=== PATIENT | male | born 1980 | race American Indian/Alaskan Native ===

== ENCOUNTER 2016-05-27 04:47 | Observation (INO) | payer OTHER ==
[2016-05-27 04:47] VITALS: BMI 28.5
[2016-05-27 05:14] VITALS: BP 114/70; PULSE 86; RESP 17; TEMP 98.8; O2SAT 99
[2016-05-27] MEDS ORDERED: Iohexol 240 (50 ml) PO ONE (05:28)
[2016-05-27] MEDS ORDERED: Sodium Chloride 0.9% 1,000 ML IV STA (05:30)
--- NOTE | 2016-05-27 05:39 | ED PDOC ---
HPI: Abdomen Time Seen by Provider: 05/27/16 05:22 Chief Complaint (Nursing): Abdominal Pain Chief Complaint (Provider): Abdominal pain History Per: Patient History/Exam Limitations: no limitations Onset/Duration Of Symptoms: Hrs (8) Outside of [place] travel?: No Current Symptoms Are (Timing): Still Present Location Of Pain/Discomfort: RLQ, Other (radiating to right testicle) Associated Symptoms: Nausea, Vomiting. denies: Urinary Symptoms Additional History Per: Patient Additional Complaint(s): The pt is a 36yo male with PMHx of GERD, presents to the ED for evaluation of abdominal pain for the past 8 hrs. Pt reports his pain originated in his right lower quadrant and radiates to his right testicle - pt reports his pain has worsened through the night. Pt rpeorts the pain as sharp, constant and is associated with nausea and 2x non-bloody, non-bilious vomiting. Pt denies any urinary symptoms and offers no additional medical complaints. Past Medical History Reviewed: Historical Data, Nursing Documentation, Vital Signs Vital Signs: Last Vital Signs Temp 98.8 F 05/27/16 05:09 Pulse 86 05/27/16 05:09 Resp 17 05/27/16 05:09 BP 114/70 05/27/16 05:09 Pulse Ox 99 05/27/16 11:34 - Medical History PMH: GERD Denies: Depression - Surgical History Surgical History: No Surg Hx - Family History Family History: States: No Known Family Hx - Home Medications Home Medications: Ambulatory Orders Medication Instructions Recorded Omeprazole Magnesium [Prilosec Otc] 40 mg PO DAILY 05/27/16 - Allergies Allergies/Adverse Reactions: Allergies Allergy/AdvReac Type Severity Reaction Status Date / Time No Known Allergies Allergy Verified 05/27/16 05:14 Review of Systems ROS Statement: Except As Marked, All Systems Reviewed And Found Negative Gastrointestinal: Positive for: Nausea, Vomiting, Abdominal Pain Physical Exam - Reviewed Nursing Documentation Reviewed: Yes Vital Signs Reviewed: Yes - Physical Exam Appears: Positive for: Well, Non-toxic, No Acute Distress Head Exam: Positive for: ATRAUMATIC, NORMAL INSPECTION, NORMOCEPHALIC Skin: Positive for: Normal Color, Warm, DRY Eye Exam: Positive for: Normal appearance, EOMI, PERRL Neck: Positive for: Normal, Supple Cardiovascular/Chest: Positive for: Regular Rate, Rhythm Respiratory: Positive for: Normal Breath Sounds. Negative for: Respiratory Distress Gastrointestinal/Abdominal: Positive for: Soft, Tenderness (right lower quadrant ) Male Genital Exam: Positive for: normal genitalia, other (uncircumcised male). Negative for: testicular tenderness (R) Neurologic/Psych: Positive for: Alert, Oriented - Laboratory Results Result Diagrams: 05/27/16 06:20 05/27/16 06:20 - ECG O2 Sat by Pulse Oximetry: 99 (RA) Pulse Ox Interpretation: Normal Medical Decision Making Medical Decision Making: Time: 536 Impression: right lower quadrant abdominal pain Plan: -- CT AP w/ PO & IV Contrast -- Bloodwork -- Morphine -- Zofran -- IV Fluids --Reassess Scribe Attestation: Documented by Gabby Yan acting as a scribe for Reji Alvarenga MD. Provider Attestation: All medical record entries made by the Scribe were at my direction and personally dictated by me. I have reviewed the chart and agree that the record accurately reflects my personal performance of the history, physical exam, medical decision making, and the department course for this patient. I have also personally directed, reviewed, and agree with the discharge instructions and disposition. ED OBSERVATION Date of observation admission: 05/27/16 Time of observation admission: : - Observation admission statement Patient is being placed in observation because:: pt waiting ct ap - Goals of Observation Goals of observation are:: ct results - Progress Note Progress Note: 05/27/16 07:00 pt to be signed out to Dr. Goodson pending CT results. Disposition - Clinical Impression Clinical Impression: Abdominal pain - Patient ED Disposition Is Patient to be Admitted: Transfer of Care - Disposition Disposition: Transfer of Care Disposition Time: 05:22 Condition: FAIR Patient Signed Over To: Richard Goodson Handoff Comments: Pending CT results and re-evaluation
[2016-05-27 06:23] LABS: BASO % 0.9 % (0.0-2.0); EOS # 0.2 K/uL (0.0-0.7); HEMATOCRIT 41.6 % (35.0-51.0); LYMPH # 1.8 K/uL (1.0-4.3); LYMPH % 43.4 % (20.0-40.0); MEAN CELL VOLUME 89.6 fl (80.0-94.0); MEAN CORPUSCULAR HEMOGLOBIN 28.4 pg (27.0-31.0); MEAN CORPUSCULAR HGB CONC 31.7 g/dL (33.0-37.0); MEAN PLATELET VOLUME 8.6 fl (7.2-11.7); MONO # 0.3 K/uL (0.0-0.8); MONO % 7.9 % (0.0-10.0); NEUT # 1.8 K/uL (1.8-7.0); NEUT % 42.8 % (50.0-75.0); NRBC % 0.1 % (0.0-0.0); RED CELL DISTRIBUTION WIDTH 14.2 % (11.5-14.5); WHITE BLOOD COUNT 4.2 K/uL (4.8-10.8)
[2016-05-27 06:39] LABS: ALB/GLOB RATIO 1.2 (1.0-2.1); ALKALINE PHOSPHATASE 78 U/L (38-126); ALT/SGPT 40 U/L (21-72); AST/SGOT 37 U/L (17-59); BILIRUBIN,TOTAL 0.3 mg/dl (0.2-1.3); BLOOD UREA NITROGEN 11 mg/dl (9-20); CALCIUM 8.9 mg/dL (8.4-10.2); CARBON DIOXIDE 23 mmol/L (22-30); CHLORIDE 111 mmol/L (98-107); GFR AFRICAN-AMERICAN > 60; GLUCOSE,RANDOM 101 mg/dL (75-110); LIPASE 243 U/L (23-300); POTASSIUM 3.7 MMOL/L (3.6-5.0); SODIUM 150 mmol/l (132-148); TOTAL PROTEIN 7.9 G/DL (6.3-8.2)
--- NOTE | 2016-05-27 07:10 | ED PDOC ---
- Laboratory Results Result Diagrams: 05/27/16 06:20 05/27/16 06:20 - ECG O2 Sat by Pulse Oximetry: 99 (RA) Pulse Ox Interpretation: Normal Medical Decision Making Medical Decision Making: Time: 7:00 --Patient is pending for Ultrasound and CT abdomen results, reassessment, and final disposition. Time: 7:40 --Patient was treated with Morphine 4mg at 5:29 and second time with Morphine 6mg at 6:[address] Alvarenga during the previous shift. Patient was laying down sleeping on bed until 7:30 and started complaining about abdominal pain again. --I offered patient Toradol in the meanwhile until Abdomen/Pelvis PO & IV Contrast CT was complete in order to further investigate why he was having pain ; if Morphine or other medications were needed again then it will be ordered. --Patient refused Toradol and stated he will not complete CT until he receives stronger medications. I did state he will provide pain medications after CT since opioid medications are restricted, he recevied large dose of opioid less than 4 hr ago, and we have no diagnosis at this time, and until appropriate medical care was provided, but patient refused the plan and refused signing any paperwork. Disposition Doctor Will See Patient In The: Office Counseled Patient/Family Regarding: Studies Performed, Diagnosis, Need For Followup - Clinical Impression Clinical Impression: Abdominal pain - POA Present On Arrival: None - Disposition Disposition: Left W/O Treatment Disposition Time: 08:00 Condition: STABLE
== END 2016-05-27 08:35 | disposition left against medical advice (07) ==
LOC: H.ER 04:47 → H.EROBSV 06:22
PROVIDERS: ADMIT Emergency Medicine; ATTEND Emergency Medicine
DX: R10.31 Right lower quadrant pain (principal); K21.9 Gastro-esophageal reflux disease without esophagitis

== ENCOUNTER 2017-06-07 01:46 | Emergency (ER) | payer SELFPAY ==
[2017-06-07 01:47] VITALS: BMI 28.5
[2017-06-07 03:32] VITALS: BP 135/58; PULSE 81; RESP 17; TEMP 97.5; O2SAT 99
[2017-06-07] MEDS ORDERED: Sodium Chloride 0.9% 1,000 ML IV STA (03:58)
[2017-06-07] MEDS ORDERED: Iohexol 240 (50 ml) PO ONE (03:58)
--- NOTE | 2017-06-07 04:16 | ED PDOC ---
HPI: Abdomen Time Seen by Provider: 06/07/17 03:34 Chief Complaint (Nursing): GI Problem History Per: Patient History/Exam Limitations: no limitations Onset/Duration Of Symptoms: Days Outside of [place] travel?: No Current Symptoms Are (Timing): Still Present Location Of Pain/Discomfort: LLQ Quality Of Discomfort: Cramping Additional Complaint(s): No PMHx presenting with abdominal pain and rectal bleeding after getting a colonic yesterday, states he's had them before but states that he felt this was different because of the tubing, states 5 minutes into the procedure he felt sharp pain in his LLQ and saw bleeding. States the bleeding has since gotten better, but the pain persists. Denies nausea, vomiting, fevers, or other symptoms. Past Medical History Reviewed: Historical Data, Nursing Documentation, Vital Signs Vital Signs: Last Vital Signs Temp 97.5 F L 06/07/17 02:11 Pulse 81 06/07/17 02:11 Resp 17 06/07/17 02:11 BP 135/58 L 06/07/17 02:11 Pulse Ox 99 06/07/17 02:11 - Medical History PMH: No Chronic Diseases, GERD Denies: Depression - Surgical History Surgical History: Appendectomy - Family History Family History: States: Unknown Family Hx - Home Medications Home Medications: Ambulatory Orders Medication Instructions Recorded Omeprazole Magnesium [Prilosec Otc] 40 mg PO DAILY 05/27/16 - Allergies Allergies/Adverse Reactions: Allergies Allergy/AdvReac Type Severity Reaction Status Date / Time No Known Allergies Allergy Verified 05/27/16 05:14 Review of Systems ROS Statement: Except As Marked, All Systems Reviewed And Found Negative Gastrointestinal: Positive for: Abdominal Pain, Rectal Pain Physical Exam - Reviewed Nursing Documentation Reviewed: Yes Vital Signs Reviewed: Yes - Physical Exam Appears: Positive for: Well, Non-toxic, No Acute Distress Head Exam: Positive for: ATRAUMATIC, NORMAL INSPECTION, NORMOCEPHALIC Skin: Positive for: Normal Color, Warm, DRY Eye Exam: Positive for: EOMI, Normal appearance, PERRL ENT: Positive for: Normal ENT Inspection Neck: Positive for: Normal, Painless ROM Cardiovascular/Chest: Positive for: Regular Rate, Rhythm Respiratory: Positive for: CNT, Normal Breath Sounds Gastrointestinal/Abdominal: Positive for: Normal Exam, Soft, Tenderness (LLQ tenderness) Back: Positive for: Normal Inspection Rectal: Positive for: Normal Exam Extremity: Positive for: Normal ROM Neurologic/Psych: Positive for: Alert, Oriented - ECG O2 Sat by Pulse Oximetry: 99 Pulse Ox Interpretation: Normal Medical Decision Making Medical Decision Makin A/P: No PMHx p/w abdominal pain after colonic -concerned for possible infection, less likely perforation -will check labs, Ct -patient uncomfortable appearing, but vitals stable 420 Patient no where to be found in ER, checked multiple bathrooms, waiting room. Patient seen by another patient walking out of ER. Disposition - Clinical Impression Clinical Impression: Abdominal pain - Disposition Disposition Time: 04:20 Condition: UNKNOWN
== END 2017-06-07 04:25 | disposition left against medical advice (07) ==
LOC: H.ER 01:46
DX: R10.32 Left lower quadrant pain (principal)

== ENCOUNTER 2018-04-07 17:44 | Observation (INO) | payer OTHER ==
[2018-04-07 17:45] VITALS: BMI 28.5
[2018-04-07] MEDS ORDERED: Lidocaine 1% Inj (20ml) IJ ONE (19:39)
[2018-04-07] MEDS ORDERED: Lidocaine 2% Jelly (Uro-Jet) TOP ONE (19:56)
[2018-04-07] MEDS ORDERED: Lidocaine 2% Jelly (Uro-Jet) ONE (20:07)
[2018-04-07 20:23] LABS: EOS # 0.1 K/uL (0.0-0.7); EOS % 1.4 % (0.0-4.0); HEMOGLOBIN 11.8 g/dL (12.0-18.0); LYMPH # 1.3 K/uL (1.0-4.3); MEAN CELL VOLUME 87.2 fl (80.0-94.0); MEAN CORPUSCULAR HEMOGLOBIN 28.5 pg (27.0-31.0); MEAN CORPUSCULAR HGB CONC 32.7 g/dL (33.0-37.0); MEAN PLATELET VOLUME 8.5 fl (7.2-11.7); MONO # 0.4 K/uL (0.0-0.8); MONO % 9.1 % (0.0-10.0); NEUT # 2.2 K/uL (1.8-7.0); NEUT % 56.5 % (50.0-75.0); RBC 4.13 Mil/uL (4.40-5.90); RED CELL DISTRIBUTION WIDTH 14.5 % (11.5-14.5); WHITE BLOOD COUNT 3.9 K/uL (4.8-10.8)
[2018-04-07 20:37] LABS: ALB/GLOB RATIO 1.3 (1.0-2.1); ALBUMIN 4.2 g/dL (3.5-5.0); ALT/SGPT 22 U/L (21-72); AST/SGOT 38 U/L (17-59); BLOOD UREA NITROGEN 11 mg/dl (9-20); CALCIUM 9.4 mg/dL (8.4-10.2); GFR NON-AFRICAN AMERICAN > 60; LIPASE 275 U/L (23-300)
[2018-04-07] MEDS ORDERED: Iohexol 240 (50 ml) PO ONE (20:40)
--- NOTE | 2018-04-07 21:06 | ED PDOC ---
HPI: Abdomen Time Seen by Provider: 04/07/18 19:15 Chief Complaint (Nursing): GI Problem Chief Complaint (Provider): GI Problem History Per: Patient History/Exam Limitations: no limitations Onset/Duration Of Symptoms: Hrs Current Symptoms Are (Timing): Still Present Location Of Pain/Discomfort: LLQ Associated Symptoms: denies: Nausea, Vomiting Additional Complaint(s): Brayden Connolly is a 38 year old male with a past medical history of DVT on eliquis who is presenting to the ED for evaluation of left lower quadrant abdominal pain and rectal pain onset today after receiving a hydro colonic at a spa. Patient states that when they inserted the catheter he immediately felt pain at rectum and after 2 minutes of a water therapy he started having abdominal pain. He denies any nausea or vomiting but states that when he went to the bathroom he saw blood and noted worsening abdominal pain. Patient offers no other medical complaints at this time. PMD: Gabrielle Wilkins, Past Medical History Reviewed: Historical Data, Nursing Documentation, Vital Signs Vital Signs: Last Vital Signs Temp 98.0 F 04/07/18 18:29 Pulse 120 H 04/07/18 18:29 Resp 18 04/07/18 18:29 BP 116/74 04/07/18 18:29 Pulse Ox 97 04/07/18 18:29 - Medical History PMH: Deep Vein Thrombosis, GERD Denies: Depression - Surgical History Surgical History: Appendectomy - Family History Family History: States: Unknown Family Hx - Social History Current smoker - smoking cessation education provided: No Ex-Smoker (has not smoked in the last 12 months): Yes Alcohol: Social Drugs: Denies - Home Medications Home Medications: Ambulatory Orders Medication Instructions Recorded Omeprazole Magnesium [Prilosec Otc] 40 mg PO DAILY 05/27/16 Rivaroxaban [Xarelto] 20 mg PO DAILY 04/08/18 - Allergies Allergies/Adverse Reactions: Allergies Allergy/AdvReac Type Severity Reaction Status Date / Time No Known Allergies Allergy Verified 05/27/16 05:14 Review of Systems ROS Statement: Except As Marked, All Systems Reviewed And Found Negative Gastrointestinal: Positive for: Abdominal Pain, Hematochezia, Rectal Pain. Negative for: Nausea, Vomiting Physical Exam - Reviewed Nursing Documentation Reviewed: Yes Vital Signs Reviewed: Yes - Physical Exam Appears: Positive for: Non-toxic, No Acute Distress, Uncomfortable Head Exam: Positive for: ATRAUMATIC, NORMAL INSPECTION, NORMOCEPHALIC Skin: Positive for: Normal Color, Warm, DRY Eye Exam: Positive for: EOMI, Normal appearance, PERRL ENT: Positive for: Normal ENT Inspection Neck: Positive for: Normal, Painless ROM Cardiovascular/Chest: Positive for: Regular Rate, Rhythm. Negative for: Murmur Respiratory: Positive for: Normal Breath Sounds. Negative for: Respiratory Distress Gastrointestinal/Abdominal: Positive for: Soft, Tenderness, Guarding (voluntary ) Back: Positive for: Normal Inspection. Negative for: L CVA Tenderness, R CVA Tenderness, Vertebral Tenderness Rectal: Positive for: Tenderness (to rectum ), Other (Jo Ann chaperoned, no catalina blood noted ) Extremity: Positive for: Normal ROM. Negative for: Deformity, Swelling Neurologic/Psych: Positive for: Alert, Oriented. Negative for: Motor/Sensory Deficits - Laboratory Results Result Diagrams: 04/07/18 19:52 04/07/18 19:52 Lab Results: Total Bilirubin 0.4 mg/dl (0.2-1.3) 04/07/18 19:52 AST 38 U/L (17-59) 04/07/18 19:52 ALT 22 U/L (21-72) 04/07/18 19:52 Alkaline Phosphatase 77 U/L (38-126) 04/07/18 19:52 Total Protein 7.4 G/DL (6.3-8.2) 04/07/18 19:52 Albumin 4.2 g/dL (3.5-5.0) 04/07/18 19:52 Globulin 3.2 gm/dL (2.2-3.9) 04/07/18 19:52 Albumin/Globulin Ratio 1.3 (1.0-2.1) 04/07/18 19:52 Lipase 275 U/L (23-300) 04/07/18 19:52 - ECG O2 Sat by Pulse Oximetry: 97 (RA) Pulse Ox Interpretation: Normal Medical Decision Making Medical Decision Making: Time: 19:31 A/P: 38 year old male presenting with abdominal pain s/p colonic --Patient uncomfortable appearing --will check with imaging for signs of perforation Will order: --CT Abd/Pelvis --CMP --Drug Screen --Lipase --CBC --Lidocaine 10 ml IJ --Omnipaque 50 ml PO --Toradol 30 mg IVP --xylocaine --X-Ray Abdomen --Occult blood, stool --Urinalysis 00:30 EXAM: CT Abdomen and Pelvis with IV contrast CLINICAL HISTORY: Abdominal pain foreign body after colonic TECHNIQUE: Axial computed tomography images of the abdomen and pelvis with intravenous contrast. 316.50 mGy-cm CONTRAST: With; [id number] 95ML COMPARISON: Comparison is made to prior examination dated 08/03/2012. FINDINGS: LUNG BASES: The lung bases appear clear. No pleural effusions are seen. LIVER: A 6.9 mm hypodense stone is seen in the postero-lateral right hepatic lobe which is too small to adequately characterize as cystic or solid GALLBLADDER AND BILE DUCTS: The gallbladder appears within normal limits. No radioopaque gallstones are seen. No biliary ductal dilatation is evident. PANCREAS: Unremarkable. SPLEEN: Unremarkable. ADRENAL GLANDS: Unremarkable. KIDNEYS, URETERS, AND BLADDER: The kidneys appear within normal limits. There is no hydronephrosis or hydroureter. No urinary calculi are seen. The urinary bladder is normal in size and configuration. STOMACH AND BOWEL: Mucosal wall thickening is seen within the stomach suspicious for gastritis.. No evidence of bowel obstruction. No evidence suggesting enteritis or colitis. Th ere is circumferential mucosal wall thickening of the rectum noted suggestive of marked proctitis. Additionally, within the rectal lumen, a radiopaque linear density measuring approximately 4.1 cm in length is noted thought compatible with some type of metallic foreign body. APPENDIX: No evidence of acute appendicitis on CT examination. PERITONEUM: No free fluid. No free air. LYMPH NODES: No lymphadenopathy is evident. REPRODUCTIVE: Unremarkable as visualized. VASCULATURE: No evidence of abdominal aortic aneurysm. BONES: No aggressive appearing osseous lesion. No acute osseous pathology evident. IMPRESSION: 1. Some type of metallic foreign body object is seen within the rectal lumen as described above. 2. Marked mucosal wall thickening compatible with proctitis. 3. Mucosal wall thickening of the stomach suggestive of gastritis. 4. A 6.9 mm hypodense lesion is seen in the postero-lateral right hepatic lobe. This is thought likely consistent with a cyst or hemangioma. This was not identified on the prior examination. Electronically signed on Apr 08, 2018 12:12:04 AM EST by: --Patient still with pain, but improved, more comfortable --Spoke with surgical attending Dr. Friedman who states that he will evaluate patient in the AM, will need IVF, NPO --Spoke with Dr. Pagan, hospitalist, who will admit the patient Scribe Attestation: Documented by Allie Cazares, acting as a scribe for Howie Teixeira MD. Provider Scribe Attestation: All medical record entries made by the Scribe were at my direction and personally dictated by me. I have reviewed the chart and agree that the record accurately reflects my personal performance of the history, physical exam, medical decision making, and the department course for this patient. I have also personally directed, reviewed, and agree with the discharge instructions and disposition. Disposition - Clinical Impression Clinical Impression: Foreign body of rectum - Patient ED Disposition Is Patient to be Admitted: Yes - Disposition Disposition Time: 00:15 Condition: FAIR Forms: [employer] ([place]) Patient Signed Over To: Evangelist Ulrich
[2018-04-07] MEDS ORDERED: Iohexol 240 (50 ml) ONE (21:26)
[2018-04-07] MEDS ORDERED: Sodium Chloride 0.9% 50 ML IV ONE (21:47)
[2018-04-07] MEDS ORDERED: Iohexol 300 100 ML IJ ONE (21:47)
[2018-04-08 00:26] LABS: URINE BILIRUBIN NEGATIVE (NEGATIVE); URINE BLOOD NEGATIVE (NEGATIVE); URINE CLARITY SLIGHTY-CLOUDY (Clear); URINE COLOR STRAW (YELLOW); URINE GLUCOSE (UA) NEG (NEGATIVE); URINE LEUKOCYTE ESTERASE NEG Leu/uL (Negative); URINE PROTEIN NEGATIVE (NEGATIVE); URINE UROBILINOGEN 0.2-1.0 mg/dL (0.2-1.0)
[2018-04-08] MEDS ORDERED: Morphine 4 MG/ML VIAL ONE ×2 (00:43→03:44)
[2018-04-08 01:00] LABS: BARBITURATES, UR NEGATIVE (NEGATIVE); BENZODIAZEPINES, UR NEGATIVE (NEGATIVE); OPIATES, UR POSITIVE (NEGATIVE); PHENCYCLIDINE, UR NEGATIVE (NEGATIVE)
[2018-04-08] MEDS ORDERED: Morphine 4 MG/ML VIAL IVP STA (01:25)
--- NOTE | 2018-04-08 03:15 | CP.PCM.CON ---
<Cheikh Mercedes - Last Filed: 04/08/18 05:44> History of Present Illness - History of Present Illness History of Present Illness: Surgery Consult Note for Dr. Ortiz/Elder Consult: Foreign body in rectum HPI: 38M, past medical history significant for bilateral pulmonary embolism currently on Xarelto, Factor V Leiden mutation, hemorrhoids, and acid reflux, presents to the emergency department with rectal and left lower quadrant pain since Saturday afternoon. Patient states he went to a medical spa for a colonics/hydrotherapy session. As tube was inserted through the rectum patient felt a sharp pain and within 1-2 minutes of starting hydrotherapy the sharp pain was unbearable. At this time patient noticed blood around the rectum and significant amounts of blood when he went to the bathroom. He has had a hydrotherapy session in the past with no complications. Since that time, bleeding has stopped however pain persists in the rectum and left lower quadrant, nonradiating, that improves with pain medication. No history of colonoscopy or GI bleeds. Denies fever, chills, nausea, vomiting, diarrhea, constipation, headaches, dizziness, chest pain, SOB, palpitations, or urinary symptoms. PMH: See above PSH: Laparoscopic appendectomy FH: Aunt and 2nd cousin with Factor V Leiden mutation, Father from prostate cancer in his 90s SH: Smokes 4-5 cigarettes daily, Drinks hard liquor or 6 pack on weekends, Denies illicit drug use ALL: NKDA Meds: Xarelto, Prilosec Review of Systems - Constitutional Constitutional: absent: Chills, Fever - EENT Eyes: absent: Blurred Vision, Change in Vision Nose/Mouth/Throat: absent: Nasal Congestion, Nasal Discharge - Cardiovascular Cardiovascular: absent: Chest Pain, Dyspnea - Respiratory Respiratory: absent: Cough, Dyspnea - Gastrointestinal Gastrointestinal: Abdominal Pain. absent: Bloating, Cramping, Diarrhea, Hematemesis, Hematochezia, Melena, Nausea, Vomiting - Genitourinary Genitourinary: absent: Difficulty Urinating, Dysuria - Musculoskeletal Musculoskeletal: absent: Back Pain, Neck Pain - Integumentary Integumentary: absent: Bleeding Lesions, Changing Lesions - Neurological Neurological: absent: Confusion, Dizziness - Psychiatric Psychiatric: absent: Anxiety, Depression Past Patient History - Past Social History Alcohol: Social Drugs: Denies - GASTROINTESTINAL Hx Gastroesophageal Reflux: Yes Hx Ulcer: Yes (peptic) - PSYCHIATRIC Hx Depression: No - SURGICAL HISTORY Hx Appendectomy: Yes - ANESTHESIA Hx Anesthesia: Yes Meds Allergies/Adverse Reactions: Allergies Allergy/AdvReac Type Severity Reaction Status Date / Time No Known Allergies Allergy Verified 05/27/16 05:14 Physical Exam - Constitutional Appears: Well, Non-toxic, No Acute Distress - Head Exam Head Exam: ATRAUMATIC, NORMAL INSPECTION, NORMOCEPHALIC - Eye Exam Eye Exam: EOMI - ENT Exam ENT Exam: Mucous Membranes Moist - Respiratory Exam Respiratory Exam: NORMAL BREATHING PATTERN. absent: Respiratory Distress - Cardiovascular Exam Cardiovascular Exam: REGULAR RHYTHM. absent: Tachycardia - GI/Abdominal Exam GI & Abdominal Exam: Soft, Tenderness. absent: Distended, Guarding, Rebound - Rectal Exam Rectal Exam: absent: Bloody Stool, Hemorrhoids Additional comments: Unable to palpate foreign body, no gross blood visualized, normal sphincter tone Patient experienced significant discomfort with SCOTT - Neurological Exam Neurological exam: Alert, Oriented x3 - Psychiatric Exam Psychiatric exam: Normal Affect, Normal Mood - Skin Skin Exam: Dry, Intact, Normal Color, Warm Results - Vital Signs Recent Vital Signs: Last Vital Signs Temp 98.2 F 04/08/18 00:53 Pulse 74 04/08/18 00:53 Resp 18 04/08/18 00:53 BP 107/72 04/08/18 00:53 Pulse Ox 97 04/08/18 01:17 - Labs Result Diagrams: 04/07/18 19:52 04/07/18 19:52 Labs: Laboratory Results - last 24 hr 04/07/18 04/07/18 04/07/18 19:52 19:52 21:40 WBC 3.9 L RBC 4.13 L Hgb 11.8 L Hct 36.0 MCV 87.2 D MCH 28.5 MCHC 32.7 L RDW 14.5 Plt Count 195 MPV 8.5 Neut % (Auto) 56.5 Lymph % (Auto) 32.0 [place] % (Auto) 9.1 Eos % (Auto) 1.4 Baso % (Auto) 1.0 Neut # (Auto) 2.2 Lymph # (Auto) 1.3 [place] # (Auto) 0.4 Eos # (Auto) 0.1 Baso # (Auto) 0.0 Sodium 139 Potassium 4.0 Chloride 101 Carbon Dioxide 23 Anion Gap 19 BUN 11 Creatinine 1.1 Est GFR ( Amer) > 60 Est GFR (Non-Af Amer) > 60 Random Glucose 86 Calcium 9.4 Total Bilirubin 0.4 AST 38 ALT 22 Alkaline Phosphatase 77 Total Protein 7.4 Albumin 4.2 Globulin 3.2 Albumin/Globulin Ratio 1.3 Lipase 275 Urine Color Urine Clarity Urine pH Ur Specific [place] Urine Protein Urine Glucose (UA) Urine Ketones Urine Blood Urine Nitrate Urine Bilirubin Urine Urobilinogen Ur Leukocyte Esterase Urine Microscopic WBC Stool Occult Blood Positive H Urine Opiates Screen Urine Methadone Screen Ur Barbiturates Screen Ur Phencyclidine Scrn Ur Amphetamines Screen U Benzodiazepines Scrn U Oth Cocaine Metabols U Cannabinoids Screen 04/08/18 04/08/18 00:07 00:07 WBC RBC Hgb Hct MCV MCH MCHC RDW Plt Count MPV Neut % (Auto) Lymph % (Auto) [place] % (Auto) Eos % (Auto) Baso % (Auto) Neut # (Auto) Lymph # (Auto) [place] # (Auto) Eos # (Auto) Baso # (Auto) Sodium Potassium Chloride Carbon Dioxide Anion Gap BUN Creatinine Est GFR ( Amer) Est GFR (Non-Af Amer) Random Glucose Calcium Total Bilirubin AST ALT Alkaline Phosphatase Total Protein Albumin Globulin Albumin/Globulin Ratio Lipase Urine Color Straw Urine Clarity Slighty-cloudy Urine pH 7.0 Ur Specific [place] 1.010 Urine Protein Negative Urine Glucose (UA) Neg Urine Ketones Negative Urine Blood Negative Urine Nitrate Negative Urine Bilirubin Negative Urine Urobilinogen 0.2-1.0 Ur Leukocyte Esterase Neg Urine Microscopic WBC 1 Stool Occult Blood Urine Opiates Screen Positive H Urine Methadone Screen Negative Ur Barbiturates Screen Negative Ur Phencyclidine Scrn Negative Ur Amphetamines Screen Negative U Benzodiazepines Scrn Negative U Oth Cocaine Metabols Negative U Cannabinoids Screen Negative Assessment & Plan - Assessment and Plan (Free Text) Assessment: 38M w/ rectal and left lower quadrant pain 2/2 retained foreign body in rectum Plan: NPO IVF Antiemetics and analgesics PRN Hold anticoagulation Will likely proceed with OR in AM AM labs Type and Cross Further recommendations per Dr. Angel Mercedes PGY1 <Aurelio Friedman - Last Filed: 04/08/18 13:42> History of Present Illness - History of Present Illness History of Present Illness: Patient was seen and examined at the bedside. Agree with resident's note above. Meds - Medications Medications: Current Medications Acetaminophen (Tylenol 325mg Tab) 650 mg PO Q6 PRN PRN Reason: Pain, Mild (1-3) Hydromorphone HCl (Dilaudid) 1 mg IVP Q4 PRN PRN Reason: Pain, severe (8-10) Last Admin: 04/08/18 09:46 Dose: 1 mg Lactated Ringer's (Lactated Ringer's) 1,000 mls @ 125 mls/hr IV .Q8H [facility] Last Admin: 04/08/18 05:27 Dose: 125 mls/hr Morphine Sulfate (Morphine) 4 mg IVP Q6 PRN PRN Reason: Pain, moderate (4-7) Ondansetron HCl (Zofran Inj) 4 mg IVP Q6 PRN PRN Reason: Nausea/Vomiting Oxycodone/Acetaminophen (Percocet 5/325 Mg Tab) 2 tab PO Q6 PRN PRN Reason: Pain, moderate (4-7) Stop: 04/11/18 07:12 Last Admin: 04/08/18 07:26 Dose: 2 tab Pantoprazole Sodium (Protonix Ec Tab) 40 mg PO DAILY [facility] Last Admin: 04/08/18 08:09 Dose: Not Given Physical Exam - GI/Abdominal Exam Additional comments: soft, very minimally tender in the lower abdomen, ND, BS+, no rebound, no guarding - Rectal Exam Additional comments: good sphincter tone, no palpable masses, no gross blood, no palpable foreign objects Results - Vital Signs Recent Vital Signs: Last Vital Signs Temp 97.8 F 04/08/18 07:59 Pulse 79 04/08/18 07:59 Resp 20 04/08/18 07:59 BP 115/61 04/08/18 07:59 Pulse Ox 99 04/08/18 07:59 - Labs Result Diagrams: 04/08/18 04:41 04/08/18 04:01 Labs: Laboratory Results - last 24 hr 04/07/18 04/07/18 04/07/18 19:52 19:52 21:40 WBC 3.9 L RBC 4.13 L Hgb 11.8 L Hct 36.0 MCV 87.2 D MCH 28.5 MCHC 32.7 L RDW 14.5 Plt Count 195 MPV 8.5 Neut % (Auto) 56.5 Lymph % (Auto) 32.0 [place] % (Auto) 9.1 Eos % (Auto) 1.4 Baso % (Auto) 1.0 Neut # (Auto) 2.2 Lymph # (Auto) 1.3 [place] # (Auto) 0.4 Eos # (Auto) 0.1 Baso # (Auto) 0.0 PT INR APTT Sodium 139 Potassium 4.0 Chloride 101 Carbon Dioxide 23 Anion Gap 19 BUN 11 Creatinine 1.1 Est GFR ( Amer) > 60 Est GFR (Non-Af Amer) > 60 Random Glucose 86 Calcium 9.4 Total Bilirubin 0.4 AST 38 ALT 22 Alkaline Phosphatase 77 Total Protein 7.4 Albumin 4.2 Globulin 3.2 Albumin/Globulin Ratio 1.3 Lipase 275 Urine Color Urine Clarity Urine pH Ur Specific [place] Urine Protein Urine Glucose (UA) Urine Ketones Urine Blood Urine Nitrate Urine Bilirubin Urine Urobilinogen Ur Leukocyte Esterase Urine Microscopic WBC Stool Occult Blood Positive H Urine Opiates Screen Urine Methadone Screen Ur Barbiturates Screen Ur Phencyclidine Scrn Ur Amphetamines Screen U Benzodiazepines Scrn U Oth Cocaine Metabols U Cannabinoids Screen Blood Type Blood Type Confirm Antibody Screen BBK History Checked 04/08/18 04/08/18 04/08/18 00:07 00:07 04:01 WBC RBC Hgb Hct MCV MCH MCHC RDW Plt Count MPV Neut % (Auto) Lymph % (Auto) [place] % (Auto) Eos % (Auto) Baso % (Auto) Neut # (Auto) Lymph # (Auto) [place] # (Auto) Eos # (Auto) Baso # (Auto) PT INR APTT Sodium 139 Potassium 4.2 Chloride 99 Carbon Dioxide 27 Anion Gap 17 BUN 11 Creatinine 1.0 Est GFR ( Amer) > 60 Est GFR (Non-Af Amer) > 60 Random Glucose 90 Calcium 9.4 Total Bilirubin AST ALT Alkaline Phosphatase Total Protein Albumin Globulin Albumin/Globulin Ratio Lipase Urine Color Straw Urine Clarity Slighty-cloudy Urine pH 7.0 Ur Specific [place] 1.010 Urine Protein Negative Urine Glucose (UA) Neg Urine Ketones Negative Urine Blood Negative Urine Nitrate Negative Urine Bilirubin Negative Urine Urobilinogen 0.2-1.0 Ur Leukocyte Esterase Neg Urine Microscopic WBC 1 Stool Occult Blood Urine Opiates Screen Positive H Urine Methadone Screen Negative Ur Barbiturates Screen Negative Ur Phencyclidine Scrn Negative Ur Amphetamines Screen Negative U Benzodiazepines Scrn Negative U Oth Cocaine Metabols Negative U Cannabinoids Screen Negative Blood Type Blood Type Confirm Antibody Screen BBK History Checked 04/08/18 04/08/18 04/08/18 04:41 04:41 04:41 WBC 3.3 L RBC 4.10 L Hgb 11.7 L Hct 35.7 MCV 87.0 MCH 28.5 MCHC 32.8 L RDW 14.2 Plt Count 179 MPV Neut % (Auto) Lymph % (Auto) [place] % (Auto) Eos % (Auto) Baso % (Auto) Neut # (Auto) Lymph # (Auto) [place] # (Auto) Eos # (Auto) Baso # (Auto) PT 13.6 H INR 1.2 APTT 35.6 Sodium Potassium Chloride Carbon Dioxide Anion Gap BUN Creatinine Est GFR ( Amer) Est GFR (Non-Af Amer) Random Glucose Calcium Total Bilirubin AST ALT Alkaline Phosphatase Total Protein Albumin Globulin Albumin/Globulin Ratio Lipase Urine Color Urine Clarity Urine pH Ur Specific [place] Urine Protein Urine Glucose (UA) Urine Ketones Urine Blood Urine Nitrate Urine Bilirubin Urine Urobilinogen Ur Leukocyte Esterase Urine Microscopic WBC Stool Occult Blood Urine Opiates Screen Urine Methadone Screen Ur Barbiturates Screen Ur Phencyclidine Scrn Ur Amphetamines Screen U Benzodiazepines Scrn U Oth Cocaine Metabols U Cannabinoids Screen Blood Type O POSITIVE Blood Type Confirm Antibody Screen Negative BBK History Checked No verified bt 04/08/18 10:40 WBC RBC Hgb Hct MCV MCH MCHC RDW Plt Count MPV Neut % (Auto) Lymph % (Auto) [place] % (Auto) Eos % (Auto) Baso % (Auto) Neut # (Auto) Lymph # (Auto) [place] # (Auto) Eos # (Auto) Baso # (Auto) PT INR APTT Sodium Potassium Chloride Carbon Dioxide Anion Gap BUN Creatinine Est GFR ( Amer) Est GFR (Non-Af Amer) Random Glucose Calcium Total Bilirubin AST ALT Alkaline Phosphatase Total Protein Albumin Globulin Albumin/Globulin Ratio Lipase Urine Color Urine Clarity Urine pH Ur Specific [place] Urine Protein Urine Glucose (UA) Urine Ketones Urine Blood Urine Nitrate Urine Bilirubin Urine Urobilinogen Ur Leukocyte Esterase Urine Microscopic WBC Stool Occult Blood Urine Opiates Screen Urine Methadone Screen Ur Barbiturates Screen Ur Phencyclidine Scrn Ur Amphetamines Screen U Benzodiazepines Scrn U Oth Cocaine Metabols U Cannabinoids Screen Blood Type Blood Type Confirm O POSITIVE Antibody Screen BBK History Checked - Imaging and Cardiology CT scan - abdomen Status: Image reviewed by me, Report reviewed by me Assessment & Plan - Assessment and Plan (Free Text) Plan: - Keep NPO - IV fluids - pain control - GI consultation of colonoscopic retrieval of the foreign object - No general surgery intervention at present time - Repeat labs in am - Will follow
--- NOTE | 2018-04-08 03:29 | CP.PCM.HP ---
<Aristides Hernandez - Last Filed: 04/08/18 04:21> History of Present Illness - History of Present Illness History of Present Illness: Pt is a 38 y/o male wit hx of Bilateral PE and DVT, Factor V leiden mutation on Zyrelto, and GERD presenting to ED with acute lower abdominal and rectal pain w/ bleeding x 1 day. States he went to have a colon hydrotherapy done yesterday afternoon which involved an object to be inserted in his rectum. During the procedure he felt severe pain and shortly after noted blood mixed with the fluid that was inserted. Though the bleeding as stopped, his abdominal and rectal pain as persisted which prompted his ED visit. He denies fever/chills, N/V, CP, SOB. States he last took his Zyrelto the morning of his procedure (Saturday). PMH: Bilateral PE and DVT (2016), Factor V leiden mutation on Zyrelto, and GERD PSurgHx:Appendectomy Meds: Xarelto, Prilosec FmHx: Aunt - Factor V Leiden mutation, Father- Prostate Ca NKDA SocialHx: Smokes 4-5 cigarettes daily, Drinks ETOH socially on weekends, Denies illicit drug use Present on Admission - Present on Admission Any Indicators Present on Admission: Yes History of DVT/PE: Yes History of Uncontrolled Diabetes: No Urinary Catheter: No Decubitus Ulcer Present: No History Surgical Site Infection Following: None Past Patient History - Past Social History Alcohol: Social Drugs: Denies - GASTROINTESTINAL Hx Gastroesophageal Reflux: Yes Hx Ulcer: Yes (peptic) - PSYCHIATRIC Hx Depression: No - SURGICAL HISTORY Hx Appendectomy: Yes - ANESTHESIA Hx Anesthesia: Yes Meds Allergies/Adverse Reactions: Allergies Allergy/AdvReac Type Severity Reaction Status Date / Time No Known Allergies Allergy Verified 05/27/16 05:14 Physical Exam - Constitutional Appears: In Acute Distress - Head Exam Head Exam: NORMAL INSPECTION - Eye Exam Eye Exam: Normal appearance - ENT Exam ENT Exam: Mucous Membranes Moist - Neck Exam Neck exam: Positive for: Full Rom - Respiratory Exam Respiratory Exam: Clear to Auscultation Bilateral. absent: Rales, Wheezes - Cardiovascular Exam Cardiovascular Exam: REGULAR RHYTHM, +S1, +S2 - GI/Abdominal Exam GI & Abdominal Exam: Normal Bowel Sounds, Soft, Tenderness (Lower quadrants BL tender on deep palpation ). absent: Distended, Guarding, Hernia, Rigid - Rectal Exam Rectal Exam: Deferred - Extremities Exam Extremities exam: Positive for: normal capillary refill, pedal pulses present. Negative for: calf tenderness, pedal edema - Neurological Exam Neurological exam: Alert, Oriented x3 - Psychiatric Exam Psychiatric exam: Normal Affect - Skin Skin Exam: Normal Color Results - Vital Signs Recent Vital Signs: Last Vital Signs Temp 98.2 F 04/08/18 00:53 Pulse 74 04/08/18 00:53 Resp 18 04/08/18 00:53 BP 107/72 04/08/18 00:53 Pulse Ox 97 04/08/18 01:17 - Labs Result Diagrams: 04/07/18 19:52 04/07/18 19:52 Labs: Laboratory Results - last 24 hr 04/07/18 04/07/18 04/07/18 19:52 19:52 21:40 WBC 3.9 L RBC 4.13 L Hgb 11.8 L Hct 36.0 MCV 87.2 D MCH 28.5 MCHC 32.7 L RDW 14.5 Plt Count 195 MPV 8.5 Neut % (Auto) 56.5 Lymph % (Auto) 32.0 [place] % (Auto) 9.1 Eos % (Auto) 1.4 Baso % (Auto) 1.0 Neut # (Auto) 2.2 Lymph # (Auto) 1.3 [place] # (Auto) 0.4 Eos # (Auto) 0.1 Baso # (Auto) 0.0 Sodium 139 Potassium 4.0 Chloride 101 Carbon Dioxide 23 Anion Gap 19 BUN 11 Creatinine 1.1 Est GFR ( Amer) > 60 Est GFR (Non-Af Amer) > 60 Random Glucose 86 Calcium 9.4 Total Bilirubin 0.4 AST 38 ALT 22 Alkaline Phosphatase 77 Total Protein 7.4 Albumin 4.2 Globulin 3.2 Albumin/Globulin Ratio 1.3 Lipase 275 Urine Color Urine Clarity Urine pH Ur Specific [place] Urine Protein Urine Glucose (UA) Urine Ketones Urine Blood Urine Nitrate Urine Bilirubin Urine Urobilinogen Ur Leukocyte Esterase Urine Microscopic WBC Stool Occult Blood Positive H Urine Opiates Screen Urine Methadone Screen Ur Barbiturates Screen Ur Phencyclidine Scrn Ur Amphetamines Screen U Benzodiazepines Scrn U Oth Cocaine Metabols U Cannabinoids Screen 04/08/18 04/08/18 00:07 00:07 WBC RBC Hgb Hct MCV MCH MCHC RDW Plt Count MPV Neut % (Auto) Lymph % (Auto) [place] % (Auto) Eos % (Auto) Baso % (Auto) Neut # (Auto) Lymph # (Auto) [place] # (Auto) Eos # (Auto) Baso # (Auto) Sodium Potassium Chloride Carbon Dioxide Anion Gap BUN Creatinine Est GFR ( Amer) Est GFR (Non-Af Amer) Random Glucose Calcium Total Bilirubin AST ALT Alkaline Phosphatase Total Protein Albumin Globulin Albumin/Globulin Ratio Lipase Urine Color Straw Urine Clarity Slighty-cloudy Urine pH 7.0 Ur Specific [place] 1.010 Urine Protein Negative Urine Glucose (UA) Neg Urine Ketones Negative Urine Blood Negative Urine Nitrate Negative Urine Bilirubin Negative Urine Urobilinogen 0.2-1.0 Ur Leukocyte Esterase Neg Urine Microscopic WBC 1 Stool Occult Blood Urine Opiates Screen Positive H Urine Methadone Screen Negative Ur Barbiturates Screen Negative Ur Phencyclidine Scrn Negative Ur Amphetamines Screen Negative U Benzodiazepines Scrn Negative U Oth Cocaine Metabols Negative U Cannabinoids Screen Negative Assessment & Plan - Assessment and Plan (Free Text) Assessment: Pt is a 38 y/o male wit hx of Bilateral PE and DVT, Factor V leiden mutation on Zyrelto, and GERD presenting to ED with acute lower abdominal and rectal pain w/ bleeding x 1 day after colonic procedure. Abdomen Pelvis CT shows radiopaque linear density ~4.1cm noted to be compatible with metallic foreign body within rectal lumen. #Rectal pain/bleeding -As noted in CT, foreign body in rectal lumen -Surgery consult placed -From medicine standpoint, strongly recommend to delay surgery until 48 hours after last Zyrelto dose -No signs of perforation or abdominal obstruction in radiographic studies -Hemoglobin 11.8, f/u am cbc -Pain management #Hx of PE/DVT and Thrombophillia -Will hold anticoagulants for now given plan for OR Diet -NPO -Maintenance fluids DVT ppx -Will hold anticoagulants in anticipation for OR <Evangelist Ulrich - Last Filed: 04/08/18 04:58> Results - Vital Signs Recent Vital Signs: Last Vital Signs Temp 98.2 F 04/08/18 00:53 Pulse 74 04/08/18 00:53 Resp 18 04/08/18 00:53 BP 107/72 04/08/18 00:53 Pulse Ox 97 04/08/18 01:17 - Labs Result Diagrams: 04/07/18 19:52 04/07/18 19:52 Labs: Laboratory Results - last 24 hr 04/07/18 04/07/18 04/07/18 19:52 19:52 21:40 WBC 3.9 L RBC 4.13 L Hgb 11.8 L Hct 36.0 MCV 87.2 D MCH 28.5 MCHC 32.7 L RDW 14.5 Plt Count 195 MPV 8.5 Neut % (Auto) 56.5 Lymph % (Auto) 32.0 [place] % (Auto) 9.1 Eos % (Auto) 1.4 Baso % (Auto) 1.0 Neut # (Auto) 2.2 Lymph # (Auto) 1.3 [place] # (Auto) 0.4 Eos # (Auto) 0.1 Baso # (Auto) 0.0 Sodium 139 Potassium 4.0 Chloride 101 Carbon Dioxide 23 Anion Gap 19 BUN 11 Creatinine 1.1 Est GFR ( Amer) > 60 Est GFR (Non-Af Amer) > 60 Random Glucose 86 Calcium 9.4 Total Bilirubin 0.4 AST 38 ALT 22 Alkaline Phosphatase 77 Total Protein 7.4 Albumin 4.2 Globulin 3.2 Albumin/Globulin Ratio 1.3 Lipase 275 Urine Color Urine Clarity Urine pH Ur Specific [place] Urine Protein Urine Glucose (UA) Urine Ketones Urine Blood Urine Nitrate Urine Bilirubin Urine Urobilinogen Ur Leukocyte Esterase Urine Microscopic WBC Stool Occult Blood Positive H Urine Opiates Screen Urine Methadone Screen Ur Barbiturates Screen Ur Phencyclidine Scrn Ur Amphetamines Screen U Benzodiazepines Scrn U Oth Cocaine Metabols U Cannabinoids Screen 04/08/18 04/08/18 00:07 00:07 WBC RBC Hgb Hct MCV MCH MCHC RDW Plt Count MPV Neut % (Auto) Lymph % (Auto) [place] % (Auto) Eos % (Auto) Baso % (Auto) Neut # (Auto) Lymph # (Auto) [place] # (Auto) Eos # (Auto) Baso # (Auto) Sodium Potassium Chloride Carbon Dioxide Anion Gap BUN Creatinine Est GFR ( Amer) Est GFR (Non-Af Amer) Random Glucose Calcium Total Bilirubin AST ALT Alkaline Phosphatase Total Protein Albumin Globulin Albumin/Globulin Ratio Lipase Urine Color Straw Urine Clarity Slighty-cloudy Urine pH 7.0 Ur Specific [place] 1.010 Urine Protein Negative Urine Glucose (UA) Neg Urine Ketones Negative Urine Blood Negative Urine Nitrate Negative Urine Bilirubin Negative Urine Urobilinogen 0.2-1.0 Ur Leukocyte Esterase Neg Urine Microscopic WBC 1 Stool Occult Blood Urine Opiates Screen Positive H Urine Methadone Screen Negative Ur Barbiturates Screen Negative Ur Phencyclidine Scrn Negative Ur Amphetamines Screen Negative U Benzodiazepines Scrn Negative U Oth Cocaine Metabols Negative U Cannabinoids Screen Negative Assessment & Plan - Assessment and Plan (Free Text) Plan: History as documented by resident was reviewed with patient and resident. I personally performed the overton elements of physical exam and agree with the above findings. Diagnostics reviewed. X-ray and EKG as above interpreted by me. Medical decision making and plan of care performed by me. 38 yo AAM with hx of Bilateral PE and DVT in the context of Factor V leiden mutation on Xarelto and GERD presenting to ED with acute lower abdominal and rectal pain w/ bleeding x 1 day. States he went to have a colon hydrotherapy done yesterday afternoon which involved an object to be inserted in his rectum. During the procedure he felt severe pain and shortly after noted blood mixed with the fluid that was inserted. Bleeding stopped;however, his abdominal and rectal pain worsened and he decided to come to ED. On exam abdomen is soft, non-distended, BS positive, there is lower abdominal tenderness with guarding but no rigidity or rebound. Surgery on board. IV pain medication. NPO. Hold Xarelto. Last dose yesterday morning. Recommend to postpone any surgical intervention for at least 48 hrs after last dose of Xarelto.
[2018-04-08] MEDS ORDERED: Morphine 4 MG/ML VIAL IVP PRN (04:00)
[2018-04-08 04:59] LABS: HEMOGLOBIN 11.7 g/dL (12.0-18.0); MEAN CORPUSCULAR HEMOGLOBIN 28.5 pg (27.0-31.0); MEAN CORPUSCULAR HGB CONC 32.8 g/dL (33.0-37.0); RBC 4.1 Mil/uL (4.40-5.90); RED CELL DISTRIBUTION WIDTH 14.2 % (11.5-14.5); WHITE BLOOD COUNT 3.3 K/uL (4.8-10.8)
[2018-04-08 05:03] LABS: INR 1.2; PROTHROMBIN TIME 13.6 Seconds (9.8-13.1)
[2018-04-08 05:05] LABS: PARTIAL THROMBOPLASTIN TIME 35.6 Seconds (25.6-37.1)
[2018-04-08 05:08] LABS: BLOOD UREA NITROGEN 11 mg/dl (9-20); CALCIUM 9.4 mg/dL (8.4-10.2); GFR NON-AFRICAN AMERICAN > 60
[2018-04-08] MEDS: Lactated Ringer's 1,000 ML IV SCH ×3 (05:27→20:28)
[2018-04-08] MEDS ORDERED: Oxycodone/Acetaminophen 5/325 mg Tab PO PRN (07:11)
[2018-04-08] MEDS: Pantoprazole 40 mg EC Tab PO SCH (08:09)
--- NOTE | 2018-04-08 08:53 | RAD ---
Date of service: 04/08/2018 HISTORY: pre-op COMPARISON: None available. FINDINGS: LUNGS: No active pulmonary disease. PLEURA: No significant pleural effusion identified, no pneumothorax apparent. CARDIOVASCULAR: No aortic atherosclerotic calcification present. Normal cardiac size. No pulmonary vascular congestion. OSSEOUS STRUCTURES: No significant abnormalities. VISUALIZED UPPER ABDOMEN: Normal. OTHER FINDINGS: None. IMPRESSION: No acute cardiopulmonary disease appreciated.
[2018-04-08] MEDS ORDERED: Chlorhexidine Gluconate 1 APPL/PKT TP ONE (10:13)
--- NOTE | 2018-04-08 10:47 | CT ---
Date of service: 04/07/2018 PROCEDURE: CT Abdomen and Pelvis with contrast HISTORY: Abdominal pain, rectal bleeding. Foreign body suspected. COMPARISON: 08/03/2012. TECHNIQUE: Intravenous contrast dose: 95 cc Omnipaque 300. Radiation dose: Total exam DLP = 316.50 mGy-cm. This CT exam was performed using one or more of the following dose reduction techniques: Automated exposure control, adjustment of the mA and/or kV according to patient size, and/or use of iterative reconstruction technique. FINDINGS: LOWER THORAX: Unremarkable. LIVER: Hepatic steatosis. No focal masses. No intrahepatic bile duct dilatation or perihepatic ascites. No gross lesion or ductal dilatation. Incidental finding(s): Sub sub cm cyst right hepatic lobe. GALLBLADDER AND BILE DUCTS: Unremarkable. PANCREAS: Unremarkable. No gross lesion or ductal dilatation. SPLEEN: Unremarkable. ADRENALS: Unremarkable. No mass. KIDNEYS AND URETERS: Unremarkable. No hydronephrosis. No solid mass. VASCULATURE: Unremarkable. No aortic aneurysm. No atherosclerotic calcification or mural plaque present. BOWEL: Confirmation of foreign body in the rectum 4.8 cm in length. This his appears centrally within the rectum and there is no evidence of perforation of the rectal wall. Constipation without fecal impaction or obstruction. APPENDIX: No abnormalities to suggest acute appendicitis. No right lower quadrant inflammatory processes identified. PERITONEUM: Unremarkable. No free fluid. No free air. LYMPH NODES: Unremarkable. No enlarged lymph nodes. BLADDER: Unremarkable. REPRODUCTIVE: Unremarkable. BONES: No acute fracture. OTHER FINDINGS: None. IMPRESSION: Confirmation of metallic foreign body in the rectum. No evidence of rectal wall perforation. Additional benign and/or incidental findings described above. Concordant results (preliminary interpretation) provided by [employer]. Procedure Completed: 23:40. Preliminary Report: Interpreted and electronically signed: 12:12. Final Interpretation: 10:43. April 08, 2018
--- NOTE | 2018-04-08 10:49 | RAD ---
Date of service: 04/07/2018 HISTORY: abd pain s/p hydro-colonic therapy COMPARISON: None available. FINDINGS: BOWEL: Nonobstructive bowel gas pattern is appreciated with gas seen scattered throughout various large and some small bowel loops. Retained fecal material scattered throughout the large bowel. There is a retained radiodense foreign body suggested in the pelvis, possibly within the rectum though this may be extra abdominal and related to the patient's clothing or gown. Clinically correlate further. BONES: Normal. OTHER FINDINGS: None. IMPRESSION: Nonobstructive bowel gas pattern. No large free intrarenal gas collection. A clip like radiodensity is appreciated in the pelvic soft tissues possibly within the rectum or even urinary bladder though its location is indeterminate in these 2 frontal projections. Clinically correlate further.
--- NOTE | 2018-04-08 12:43 | CARD ---
APPROVED REPORT Date of service: 04/08/2018 EKG Measurement Heart [id number] <Conclusion> Sinus bradycardia Otherwise normal ECG
[2018-04-08] MEDS ORDERED: Lactated Ringer's 500 ML IV ONE ×2 (14:04→15:10)
[2018-04-08] MEDS ORDERED: Midazolam 2 MG/2 ML VIAL ONE (14:42)
[2018-04-08] MEDS ORDERED: Propofol 10 mg/ml Inj (20 ML) ONE (14:42)
[2018-04-08] MEDS ORDERED: Succinylcholine 200 mg/10 ml Inj IV ONE (14:46)
[2018-04-08] MEDS: HYDROmorphone 0.5 mg/0.5 ml ISec IVP PRN ×3 (16:00→17:05)
--- NOTE | 2018-04-08 16:30 | CP.PCM.CON ---
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 No previous GI history. Review of Systems - EENT Eyes: absent: Blurred Vision Nose/Mouth/Throat: absent: Epistaxis - Cardiovascular Cardiovascular: absent: Chest Pain - Respiratory Respiratory: absent: Cough - Gastrointestinal Gastrointestinal: Abdominal Pain - Genitourinary Genitourinary: absent: Change in Urinary Stream Past Patient History - Past Social History Alcohol: Social Drugs: Denies - CARDIAC Hx Cardiac Disorders: Yes - PULMONARY Hx Respiratory Disorders: No - NEUROLOGICAL Hx Neurological Disorder: No - HEENT Hx HEENT Problems: No - RENAL Hx Chronic Kidney Disease: No - ENDOCRINE/METABOLIC Hx Endocrine Disorders: No - HEMATOLOGICAL/ONCOLOGICAL Hx Blood Disorders: Yes - INTEGUMENTARY Hx Dermatological Problems: No - MUSCULOSKELETAL/RHEUMATOLOGICAL Hx Falls: No - GASTROINTESTINAL Hx Gastroesophageal Reflux: Yes Hx Ulcer: Yes (peptic) - GENITOURINARY/GYNECOLOGICAL Hx Genitourinary Disorders: No - PSYCHIATRIC Hx Depression: No - SURGICAL HISTORY Hx Appendectomy: Yes - ANESTHESIA Hx Anesthesia: Yes Meds Allergies/Adverse Reactions: Allergies Allergy/AdvReac Type Severity Reaction Status Date / Time No Known Allergies Allergy Verified 05/27/16 05:14 - Medications Medications: Current Medications Acetaminophen (Tylenol 325mg Tab) 650 mg PO Q6 PRN PRN Reason: Pain, Mild (1-3) Hydromorphone HCl (Dilaudid) 1 mg IVP Q4 PRN PRN Reason: Pain, severe (8-10) Last Admin: 04/08/18 09:46 Dose: 1 mg Hydromorphone HCl (Dilaudid) 0.5 mg IVP Q5M PRN PRN Reason: Pain, severe (8-10) Stop: 04/08/18 17:55 Last Admin: 04/08/18 16:00 Dose: 0.5 mg Lactated Ringer's (Lactated Ringer's) 1,000 mls @ 125 mls/hr IV .Q8H [facility] Last Admin: 04/08/18 11:11 Dose: Not Given Ciprofloxacin (Cipro 400mg/200ml Dsw) 400 mg in 200 mls @ 200 mls/hr IVPB Q12 [facility]; Protocol Metronidazole 250 mg/ (Miscellaneous) 50 mls @ 50 mls/hr IVPB Q6H [facility]; Protocol Ondansetron HCl (Zofran Inj) 4 mg IVP Q6 PRN PRN Reason: Nausea/Vomiting Ondansetron HCl (Zofran Inj) 4 mg IVP ONCE PRN PRN Reason: Nausea/Vomiting Stop: 04/08/18 17:55 Oxycodone/Acetaminophen (Percocet 5/325 Mg Tab) 2 tab PO Q6 PRN PRN Reason: Pain, moderate (4-7) Stop: 04/11/18 07:12 Last Admin: 04/08/18 07:26 Dose: 2 tab Pantoprazole Sodium (Protonix Ec Tab) 40 mg PO DAILY [facility] Last Admin: 04/08/18 08:09 Dose: Not Given Physical Exam - Head Exam Head Exam: ATRAUMATIC - Eye Exam Eye Exam: Normal appearance - ENT Exam ENT Exam: Normal Exam - Neck Exam Neck exam: Positive for: Normal Inspection - Respiratory Exam Respiratory Exam: Clear to Auscultation Bilateral - Cardiovascular Exam Cardiovascular Exam: REGULAR RHYTHM, +S1, +S2 - GI/Abdominal Exam GI & Abdominal Exam: Firm, Normal Bowel Sounds, Tenderness Results - Vital Signs Recent Vital Signs: Last Vital Signs Temp 98.2 F 04/08/18 15:18 Pulse 70 04/08/18 16:10 Resp 18 04/08/18 16:10 BP 114/68 04/08/18 16:10 Pulse Ox 99 04/08/18 16:10 - Labs Result Diagrams: 04/08/18 04:41 04/08/18 04:01 Labs: Laboratory Results - last 24 hr 04/07/18 04/07/18 04/07/18 19:52 19:52 21:40 WBC 3.9 L RBC 4.13 L Hgb 11.8 L Hct 36.0 MCV 87.2 D MCH 28.5 MCHC 32.7 L RDW 14.5 Plt Count 195 MPV 8.5 Neut % (Auto) 56.5 Lymph % (Auto) 32.0 Davidson % (Auto) 9.1 Eos % (Auto) 1.4 Baso % (Auto) 1.0 Neut # (Auto) 2.2 Lymph # (Auto) 1.3 Davidson # (Auto) 0.4 Eos # (Auto) 0.1 Baso # (Auto) 0.0 PT INR APTT Sodium 139 Potassium 4.0 Chloride 101 Carbon Dioxide 23 Anion Gap 19 BUN 11 Creatinine 1.1 Est GFR ( Amer) > 60 Est GFR (Non-Af Amer) > 60 Random Glucose 86 Calcium 9.4 Total Bilirubin 0.4 AST 38 ALT 22 Alkaline Phosphatase 77 Total Protein 7.4 Albumin 4.2 Globulin 3.2 Albumin/Globulin Ratio 1.3 Lipase 275 Urine Color Urine Clarity Urine pH Ur Specific Fults Urine Protein Urine Glucose (UA) Urine Ketones Urine Blood Urine Nitrate Urine Bilirubin Urine Urobilinogen Ur Leukocyte Esterase Urine Microscopic WBC Stool Occult Blood Positive H Urine Opiates Screen Urine Methadone Screen Ur Barbiturates Screen Ur Phencyclidine Scrn Ur Amphetamines Screen U Benzodiazepines Scrn U Oth Cocaine Metabols U Cannabinoids Screen Blood Type Blood Type Confirm Antibody Screen BBK History Checked 04/08/18 04/08/18 04/08/18 00:07 00:07 04:01 WBC RBC Hgb Hct MCV MCH MCHC RDW Plt Count MPV Neut % (Auto) Lymph % (Auto) Davidson % (Auto) Eos % (Auto) Baso % (Auto) Neut # (Auto) Lymph # (Auto) Davidson # (Auto) Eos # (Auto) Baso # (Auto) PT INR APTT Sodium 139 Potassium 4.2 Chloride 99 Carbon Dioxide 27 Anion Gap 17 BUN 11 Creatinine 1.0 Est GFR ( Amer) > 60 Est GFR (Non-Af Amer) > 60 Random Glucose 90 Calcium 9.4 Total Bilirubin AST ALT Alkaline Phosphatase Total Protein Albumin Globulin Albumin/Globulin Ratio Lipase Urine Color Straw Urine Clarity Slighty-cloudy Urine pH 7.0 Ur Specific Fults 1.010 Urine Protein Negative Urine Glucose (UA) Neg Urine Ketones Negative Urine Blood Negative Urine Nitrate Negative Urine Bilirubin Negative Urine Urobilinogen 0.2-1.0 Ur Leukocyte Esterase Neg Urine Microscopic WBC 1 Stool Occult Blood Urine Opiates Screen Positive H Urine Methadone Screen Negative Ur Barbiturates Screen Negative Ur Phencyclidine Scrn Negative Ur Amphetamines Screen Negative U Benzodiazepines Scrn Negative U Oth Cocaine Metabols Negative U Cannabinoids Screen Negative Blood Type Blood Type Confirm Antibody Screen BBK History Checked 04/08/18 04/08/18 04/08/18 04:41 04:41 04:41 WBC 3.3 L RBC 4.10 L Hgb 11.7 L Hct 35.7 MCV 87.0 MCH 28.5 MCHC 32.8 L RDW 14.2 Plt Count 179 MPV Neut % (Auto) Lymph % (Auto) Davidson % (Auto) Eos % (Auto) Baso % (Auto) Neut # (Auto) Lymph # (Auto) Davidson # (Auto) Eos # (Auto) Baso # (Auto) PT 13.6 H INR 1.2 APTT 35.6 Sodium Potassium Chloride Carbon Dioxide Anion Gap BUN Creatinine Est GFR ( Amer) Est GFR (Non-Af Amer) Random Glucose Calcium Total Bilirubin AST ALT Alkaline Phosphatase Total Protein Albumin Globulin Albumin/Globulin Ratio Lipase Urine Color Urine Clarity Urine pH Ur Specific Fults Urine Protein Urine Glucose (UA) Urine Ketones Urine Blood Urine Nitrate Urine Bilirubin Urine Urobilinogen Ur Leukocyte Esterase Urine Microscopic WBC Stool Occult Blood Urine Opiates Screen Urine Methadone Screen Ur Barbiturates Screen Ur Phencyclidine Scrn Ur Amphetamines Screen U Benzodiazepines Scrn U Oth Cocaine Metabols U Cannabinoids Screen Blood Type O POSITIVE Blood Type Confirm Antibody Screen Negative BBK History Checked No verified bt 04/08/18 10:40 WBC RBC Hgb Hct MCV MCH MCHC RDW Plt Count MPV Neut % (Auto) Lymph % (Auto) Davidson % (Auto) Eos % (Auto) Baso % (Auto) Neut # (Auto) Lymph # (Auto) Davidson # (Auto) Eos # (Auto) Baso # (Auto) PT INR APTT Sodium Potassium Chloride Carbon Dioxide Anion Gap BUN Creatinine Est GFR ( Amer) Est GFR (Non-Af Amer) Random Glucose Calcium Total Bilirubin AST ALT Alkaline Phosphatase Total Protein Albumin Globulin Albumin/Globulin Ratio Lipase Urine Color Urine Clarity Urine pH Ur Specific Fults Urine Protein Urine Glucose (UA) Urine Ketones Urine Blood Urine Nitrate Urine Bilirubin Urine Urobilinogen Ur Leukocyte Esterase Urine Microscopic WBC Stool Occult Blood Urine Opiates Screen Urine Methadone Screen Ur Barbiturates Screen Ur Phencyclidine Scrn Ur Amphetamines Screen U Benzodiazepines Scrn U Oth Cocaine Metabols U Cannabinoids Screen Blood Type Blood Type Confirm O POSITIVE Antibody Screen BBK History Checked - Imaging and Cardiology CT scan - abdomen Status: Image reviewed by me, Report reviewed by me Assessment & Plan (1) Foreign body of rectum Assessment and Plan: Has rectal foreign body. For colonoscopic removal. Status: Acute
[2018-04-08] MEDS: metroNIDAZOLE 500mg/100ml NS 250 MG in Premixed IV 1 EA IVPB SCH ×2 (17:00→23:00)
--- NOTE | 2018-04-08 17:20 | RAD ---
Date of service: 04/08/2018 HISTORY: s/p colonoscopy COMPARISON: 2018. CT abdomen and pelvis FINDINGS: BOWEL: Normal. No obstruction. No free air. Contrast identified in nondistended colon. BONES: Normal. OTHER FINDINGS: The previously identified foreign body in the rectum is not visible on the current study. IMPRESSION: Status post colonoscopy, presumed colonoscopist retrieval of foreign body. No residual, visible foreign bodies detected.
--- NOTE | 2018-04-08 17:21 | RAD ---
Date of service: 04/08/2018 PROCEDURE: Chest multiple five views including decubitus view HISTORY: s/p rectal foreign body removal COMPARISON: April 08, 2018 Time of the most recent examination: 04:01. TECHNIQUE: Oblique and decubitus views. FINDINGS: No active pulmonary disease. No pulmonary nodules, masses or infiltrates. No evidence of acute, significant cardiovascular disease. No significant pleural, osseous or subdiaphragmatic abnormalities. IMPRESSION: No visible free air under the diaphragms. No active pulmonary disease.
[2018-04-08] MEDS ORDERED: Lactated Ringer's 1,000 ML IV ONE (17:30)
[2018-04-08] MEDS: Lactated Ringer's 500 ML IV SCH ×2 (20:28→21:02)
[2018-04-08] MEDS: Ciprofloxacin 400mg/200ml D5W 400 MG/200 ML BAG IVPB SCH (20:55)
[2018-04-09] MEDS: Lactated Ringer's 500 ML IV SCH ×6 (01:08→22:02)
[2018-04-09] MEDS: metroNIDAZOLE 500mg/100ml NS 250 MG in Premixed IV 1 EA IVPB SCH ×4 (03:35→23:04)
[2018-04-09] MEDS: Lactated Ringer's 1,000 ML IV SCH ×3 (03:36→22:01)
[2018-04-09 08:45] LABS: BASO % 0.5 % (0.0-2.0); EOS # 0.1 K/uL (0.0-0.7); HEMOGLOBIN 10.9 g/dL (12.0-18.0); LYMPH # 1.1 K/uL (1.0-4.3); LYMPH % 27.9 % (20.0-40.0); MEAN CELL VOLUME 88.1 fl (80.0-94.0); MEAN CORPUSCULAR HEMOGLOBIN 28.7 pg (27.0-31.0); MEAN CORPUSCULAR HGB CONC 32.6 g/dL (33.0-37.0); MONO # 0.3 K/uL (0.0-0.8); NEUT # 2.3 K/uL (1.8-7.0); NEUT % 60.6 % (50.0-75.0); RBC 3.8 Mil/uL (4.40-5.90); RED CELL DISTRIBUTION WIDTH 14.3 % (11.5-14.5); WHITE BLOOD COUNT 3.8 K/uL (4.8-10.8)
[2018-04-09 09:00] LABS: BLOOD UREA NITROGEN 12 mg/dl (9-20); CALCIUM 9.3 mg/dL (8.4-10.2); GFR NON-AFRICAN AMERICAN > 60
--- NOTE | 2018-04-09 09:19 | CP.PCM.PN ---
Subjective - Date & Time of Evaluation Date of Evaluation: 04/09/18 Time of Evaluation: 09:17 - Subjective Subjective: seen at bedside, no acute events. Pt underwent colonoscopy with removal of foreign body. Pt report abdominal pain more localized to LLQ but improved rectal pain. Pt NPO, no nauesea or vomiting. Objective - Vital Signs/Intake and Output Vital Signs (last 24 hours): Temp Pulse Resp BP Pulse Ox 97.8 F 69 20 116/47 L 100 04/09/18 08:05 04/09/18 08:05 04/09/18 08:05 04/09/18 08:05 04/09/18 08:05 - Medications Medications: Current Medications Acetaminophen (Tylenol 325mg Tab) 650 mg PO Q6 PRN PRN Reason: Pain, Mild (1-3) Hydromorphone HCl (Dilaudid) 1 mg IVP Q4 PRN PRN Reason: Pain, severe (8-10) Last Admin: 04/09/18 08:58 Dose: 1 mg Lactated Ringer's (Lactated Ringer's) 1,000 mls @ 125 mls/hr IV .Q8H [facility] Last Admin: 04/09/18 03:36 Dose: 125 mls/hr Ciprofloxacin (Cipro 400mg/200ml Dsw) 400 mg in 200 mls @ 200 mls/hr IVPB Q12 [facility]; Protocol Last Admin: 04/08/18 20:55 Dose: 200 mls/hr Metronidazole 250 mg/ (Miscellaneous) 50 mls @ 50 mls/hr IVPB Q6H [facility]; Protocol Last Admin: 04/09/18 03:35 Dose: 50 mls/hr Lactated Ringer's (Lactated Ringer's 500ml) 500 mls @ 125 mls/hr IV .Q4H [facility] Last Admin: 04/09/18 09:16 Dose: Not Given Ondansetron HCl (Zofran Inj) 4 mg IVP Q6 PRN PRN Reason: Nausea/Vomiting Oxycodone/Acetaminophen (Percocet 5/325 Mg Tab) 2 tab PO Q6 PRN PRN Reason: Pain, moderate (4-7) Stop: 04/11/18 07:12 Last Admin: 04/08/18 07:26 Dose: 2 tab Pantoprazole Sodium (Protonix Ec Tab) 40 mg PO DAILY [facility] Last Admin: 04/08/18 08:09 Dose: Not Given - Labs Labs: 04/09/18 08:30 04/09/18 08:30 PT 13.6 Seconds (9.8-13.1) H 04/08/18 04:41 INR 1.2 04/08/18 04:41 APTT 35.6 Seconds (25.6-37.1) 04/08/18 04:41 - Constitutional Appears: Non-toxic, No Acute Distress - Head Exam Head Exam: NORMAL INSPECTION - ENT Exam ENT Exam: Mucous Membranes Dry - Respiratory Exam Respiratory Exam: NORMAL BREATHING PATTERN - GI/Abdominal Exam GI & Abdominal Exam: Distended, Soft, Tenderness (more to LLQ, no peritoneal signs ) - Rectal Exam Rectal Exam: Deferred Assessment and Plan - Assessment and Plan (Free Text) Assessment: s/p removal of foreign body -ok to start clears -pt with localized abd pain to LLQ, continue to monitor
[2018-04-09] MEDS: Ciprofloxacin 400mg/200ml D5W 400 MG/200 ML BAG IVPB SCH ×2 (09:23→21:58)
[2018-04-09] MEDS: Pantoprazole 40 mg EC Tab PO SCH (09:25)
--- NOTE | 2018-04-09 10:08 | CP.PCM.PN ---
Subjective - Date & Time of Evaluation Date of Evaluation: 04/09/18 Time of Evaluation: 10:08 - Subjective Subjective: Patient seen and evaluated this morning. No acute events overnight. Patient admits to left upper and lower quadrant pain and discomfort this morning. He has remained NPO and states that he continues to need pain medication to help allev iate the discomfort. Denies nausea/vomiting/fever/shortness of breath/chest pain. Objective - Vital Signs/Intake and Output Vital Signs (last 24 hours): Temp Pulse Resp BP Pulse Ox 97.8 F 69 20 116/47 L 100 04/09/18 08:05 04/09/18 08:05 04/09/18 08:05 04/09/18 08:05 04/09/18 08:05 - Medications Medications: Current Medications Acetaminophen (Tylenol 325mg Tab) 650 mg PO Q6 PRN PRN Reason: Pain, Mild (1-3) Hydromorphone HCl (Dilaudid) 1 mg IVP Q4 PRN PRN Reason: Pain, severe (8-10) Last Admin: 04/09/18 08:58 Dose: 1 mg Lactated Ringer's (Lactated Ringer's) 1,000 mls @ 125 mls/hr IV .Q8H [facility] Last Admin: 04/09/18 03:36 Dose: 125 mls/hr Ciprofloxacin (Cipro 400mg/200ml Dsw) 400 mg in 200 mls @ 200 mls/hr IVPB Q12 [facility]; Protocol Last Admin: 04/09/18 09:23 Dose: 200 mls/hr Metronidazole 250 mg/ (Miscellaneous) 50 mls @ 50 mls/hr IVPB Q6H [facility]; Protocol Last Admin: 04/09/18 03:35 Dose: 50 mls/hr Lactated Ringer's (Lactated Ringer's 500ml) 500 mls @ 125 mls/hr IV .Q4H [facility] Last Admin: 04/09/18 09:16 Dose: Not Given Ondansetron HCl (Zofran Inj) 4 mg IVP Q6 PRN PRN Reason: Nausea/Vomiting Oxycodone/Acetaminophen (Percocet 5/325 Mg Tab) 2 tab PO Q6 PRN PRN Reason: Pain, moderate (4-7) Stop: 04/11/18 07:12 Last Admin: 04/08/18 07:26 Dose: 2 tab Pantoprazole Sodium (Protonix Ec Tab) 40 mg PO DAILY [facility] Last Admin: 04/09/18 09:25 Dose: Not Given - Labs Labs: 04/09/18 08:30 04/09/18 08:30 PT 13.6 Seconds (9.8-13.1) H 04/08/18 04:41 INR 1.2 04/08/18 04:41 APTT 35.6 Seconds (25.6-37.1) 04/08/18 04:41 - Constitutional Appears: Non-toxic, No Acute Distress - Head Exam Head Exam: ATRAUMATIC, NORMOCEPHALIC - Eye Exam Eye Exam: Normal appearance - ENT Exam ENT Exam: Mucous Membranes Moist - Respiratory Exam Respiratory Exam: Clear to Ausculation Bilateral, NORMAL BREATHING PATTERN - Cardiovascular Exam Cardiovascular Exam: REGULAR RHYTHM - GI/Abdominal Exam GI & Abdominal Exam: Guarding, Diminished Bowel Sounds - Extremities Exam Extremities Exam: Normal Capillary Refill, Normal Inspection. absent: Calf Tenderness - Back Exam Back Exam: NORMAL INSPECTION - Neurological Exam Neurological Exam: Alert, Awake, Oriented x3 - Psychiatric Exam Psychiatric exam: Normal Affect, Normal Mood Assessment and Plan - Assessment and Plan (Free Text) Assessment: 38 year old male patient, with PMHx of PE, DVT, Factor V leiden, admitted for abdominal pain with foreign body within retal lumen. Plan: 1. Rectal/abdominal pain with rectal bleeding - ABD CT: radiopaque linear density ~4.1cm noted to be compatible with metallic foreign body within rectal lumen. - Gen Surg consulted, no surgical intervention at this time - Gastroenterology Consulted, Dr. Rodriguez, reccs appreciated. Patient plan for colonoscopy. - Colonoscopy (DOS: 04/08/18) with removal of retained foreign body - Hgb 10.9 - No signs of perforation or abdominal obstruction in studies - Pain management 2. Hx of PE/DVT - Hold anticoagulants for now 3. Diet - Advance to liquid diet 4. DVT prophylaxis - Hold anticoagulants for now
--- NOTE | 2018-04-09 17:57 | RAD ---
Date of service: 04/09/2018 HISTORY: abdominal pain COMPARISON: None available. FINDINGS: BOWEL: Normal bowel gas pattern. Oral contrast seen within the large bowel as result of CT examination of 04/07/2018. No evidence of bowel obstruction. No hepatic or splenic enlargement. No masses or abnormal calcifications. No free intraperitoneal air identified. BONES: Normal. OTHER FINDINGS: None. IMPRESSION: No active disease.
[2018-04-10] MEDS: Lactated Ringer's 500 ML IV SCH ×3 (01:41→08:43)
[2018-04-10] MEDS: metroNIDAZOLE 500mg/100ml NS 250 MG in Premixed IV 1 EA IVPB SCH (03:37)
[2018-04-10] MEDS: Lactated Ringer's 1,000 ML IV SCH ×2 (03:38→06:14)
--- NOTE | 2018-04-10 07:38 | CP.PCM.PN ---
<Alex Mcnair - Last Filed: 04/10/18 07:36> Subjective - Date & Time of Evaluation Date of Evaluation: 04/10/18 Time of Evaluation: 07:36 - Subjective Subjective: Surgery progress note - Dr. Park 38M seen and evaluated at bedside this AM. Resting comfortably, no acute distress. Denies acute events overnight. Reports mild nausea, denies v/c/f/sob/cp. Objective - Vital Signs/Intake and Output Vital Signs (last 24 hours): Temp Pulse Resp BP Pulse Ox 97.6 F 64 19 122/64 97 04/10/18 06:45 04/10/18 06:45 04/10/18 06:45 04/10/18 06:45 04/10/18 06:45 - Medications Medications: Current Medications Acetaminophen (Tylenol 325mg Tab) 650 mg PO Q6 PRN PRN Reason: Pain, Mild (1-3) Hydromorphone HCl (Dilaudid) 1 mg IVP Q4 PRN PRN Reason: Pain, severe (8-10) Last Admin: 04/10/18 04:27 Dose: 1 mg Lactated Ringer's (Lactated Ringer's) 1,000 mls @ 125 mls/hr IV .Q8H [facility] Last Admin: 04/10/18 06:14 Dose: 125 mls/hr Ciprofloxacin (Cipro 400mg/200ml Dsw) 400 mg in 200 mls @ 200 mls/hr IVPB Q12 [facility]; Protocol Last Admin: 04/09/18 21:58 Dose: 200 mls/hr Metronidazole 250 mg/ (Miscellaneous) 50 mls @ 50 mls/hr IVPB Q6H [facility]; Protocol Last Admin: 04/10/18 03:37 Dose: 50 mls/hr Lactated Ringer's (Lactated Ringer's 500ml) 500 mls @ 125 mls/hr IV .Q4H [facility] Last Admin: 04/10/18 05:16 Dose: Not Given Ondansetron HCl (Zofran Inj) 4 mg IVP Q6 PRN PRN Reason: Nausea/Vomiting Last Admin: 04/09/18 12:44 Dose: 4 mg Oxycodone/Acetaminophen (Percocet 5/325 Mg Tab) 2 tab PO Q6 PRN PRN Reason: Pain, moderate (4-7) Stop: 04/11/18 07:12 Last Admin: 04/08/18 07:26 Dose: 2 tab Pantoprazole Sodium (Protonix Inj) 40 mg IVP DAILY [facility] Last Admin: 04/09/18 18:19 Dose: 40 mg - Labs Labs: 04/09/18 08:30 04/09/18 08:30 PT 13.6 Seconds (9.8-13.1) H 04/08/18 04:41 INR 1.2 04/08/18 04:41 APTT 35.6 Seconds (25.6-37.1) 04/08/18 04:41 - Constitutional Appears: Non-toxic - Head Exam Head Exam: ATRAUMATIC - Eye Exam Eye Exam: EOMI. absent: Scleral icterus - ENT Exam ENT Exam: Mucous Membranes Moist - Respiratory Exam Respiratory Exam: NORMAL BREATHING PATTERN - GI/Abdominal Exam GI & Abdominal Exam: Distended, Soft, Tenderness (more to LLQ, no peritoneal signs) - Extremities Exam Extremities Exam: Normal Capillary Refill. absent: Calf Tenderness - Neurological Exam Neurological Exam: Alert, Awake, Oriented x3 - Psychiatric Exam Psychiatric exam: Normal Affect Assessment and Plan - Assessment and Plan (Free Text) Assessment: 38M s/p foreign body removal Plan: - f/u AM labs - continue abx - c/w liquid diet Km PGY1 <Ze Park - Last Filed: 04/10/18 09:52> Objective - Vital Signs/Intake and Output Vital Signs (last 24 hours): Temp Pulse Resp BP Pulse Ox 97.9 F 56 L 20 91/50 L 100 04/10/18 08:15 04/10/18 08:15 04/10/18 08:15 04/10/18 08:15 04/10/18 08:15 - Medications Medications: Current Medications Acetaminophen (Tylenol 325mg Tab) 650 mg PO Q6 PRN PRN Reason: Pain, Mild (1-3) Hydromorphone HCl (Dilaudid) 1 mg IVP Q4 PRN PRN Reason: Pain, severe (8-10) Last Admin: 04/10/18 08:42 Dose: 1 mg Lactated Ringer's (Lactated Ringer's) 1,000 mls @ 125 mls/hr IV .Q8H [facility] Last Admin: 04/10/18 06:14 Dose: 125 mls/hr Lactated Ringer's (Lactated Ringer's 500ml) 500 mls @ 125 mls/hr IV .Q4H [facility] Last Admin: 04/10/18 08:43 Dose: Not Given Ondansetron HCl (Zofran Inj) 4 mg IVP Q6 PRN PRN Reason: Nausea/Vomiting Last Admin: 04/09/18 12:44 Dose: 4 mg Oxycodone/Acetaminophen (Percocet 5/325 Mg Tab) 2 tab PO Q6 PRN PRN Reason: Pain, moderate (4-7) Stop: 04/11/18 07:12 Last Admin: 04/08/18 07:26 Dose: 2 tab Pantoprazole Sodium (Protonix Inj) 40 mg IVP DAILY [facility] Last Admin: 04/10/18 08:44 Dose: 40 mg - Labs Labs: 04/10/18 08:36 04/10/18 08:36 PT 13.6 Seconds (9.8-13.1) H 04/08/18 04:41 INR 1.2 04/08/18 04:41 APTT 35.6 Seconds (25.6-37.1) 04/08/18 04:41 Assessment and Plan - Assessment and Plan (Free Text) Plan: pt seen at bedside, reports improved abdominal discomfort. Pt tolerating clears, no nausea or vomiting. +BM. gen: awake, alert, NAD abd: soft, NT, ND, no peritoneal sings a/p- colonoscopy removal of foreign body -advance to regular diet -if pt tolerates diet, pt stable from surgery perspective
[2018-04-10 08:16] VITALS: BP 91/50; PULSE 56; RESP 20; TEMP 97.9; O2SAT 100
[2018-04-10 08:43] LABS: BASO % 0.4 % (0.0-2.0); EOS # 0.1 K/uL (0.0-0.7); EOS % 4.8 % (0.0-4.0); HEMOGLOBIN 11.2 g/dL (12.0-18.0); LYMPH % 38.8 % (20.0-40.0); MEAN CELL VOLUME 87.7 fl (80.0-94.0); MEAN CORPUSCULAR HEMOGLOBIN 29.1 pg (27.0-31.0); MEAN CORPUSCULAR HGB CONC 33.2 g/dL (33.0-37.0); MEAN PLATELET VOLUME 7.9 fl (7.2-11.7); MONO # 0.3 K/uL (0.0-0.8); MONO % 12.2 % (0.0-10.0); NEUT # 1.1 K/uL (1.8-7.0); NEUT % 43.8 % (50.0-75.0); NRBC % 0.1 % (0.0-0.0); RBC 3.85 Mil/uL (4.40-5.90); RED CELL DISTRIBUTION WIDTH 14.3 % (11.5-14.5); WHITE BLOOD COUNT 2.5 K/uL (4.8-10.8)
[2018-04-10] MEDS: Ciprofloxacin 400mg/200ml D5W 400 MG/200 ML BAG IVPB SCH (08:43)
[2018-04-10 08:53] LABS: BLOOD UREA NITROGEN 10 mg/dl (9-20); CALCIUM 9.4 mg/dL (8.4-10.2); GFR NON-AFRICAN AMERICAN > 60
[2018-04-10] MEDS ORDERED: Oxycodone/Acetaminophen 5/325 mg Tab PO PRN ×2 (11:11→11:13)
[2018-04-10] MEDS ORDERED: Lactated Ringer's 500 ML IV SCH (11:30)
--- NOTE | 2018-04-10 11:49 | CP.PCM.DIS ---
Provider - Provider Date of Admission: 04/08/18 01:13 Attending physician: Evangelist Ulrich MD Consults: 04/08/18 01:01 Surgery [General Surgery Consult] Stat Comment: Consulting Provider: Aurelio Friedman Consulting Physician: Aurelio Friedman Reason for Consult: retained metallic object 04/08/18 06:04 Social Work Referral Routine Comment: smoker Physician Instructions: Reason For Exam: smoking cessation 04/08/18 10:31 Gastroenterology Consult Routine Comment: rectal foreign body Consulting Provider: Zane Rodriguez Consulting Physician: Zane Rodriguez Reason for Consult: rectal foreign body Time Spent in preparation of Discharge (in minutes): 20 Hospital Course - Lab Results Lab Results: Most Recent Lab Values WBC 2.5 K/uL (4.8-10.8) L 04/10/18 08:36 RBC 3.85 Mil/uL (4.40-5.90) L 04/10/18 08:36 Hgb 11.2 g/dL (12.0-18.0) L 04/10/18 08:36 Hct 33.8 % (35.0-51.0) L 04/10/18 08:36 MCV 87.7 fl (80.0-94.0) 04/10/18 08:36 MCH 29.1 pg (27.0-31.0) 04/10/18 08:36 MCHC 33.2 g/dL (33.0-37.0) 04/10/18 08:36 RDW 14.3 % (11.5-14.5) 04/10/18 08:36 Plt Count 164 K/uL (130-400) 04/10/18 08:36 MPV 7.9 fl (7.2-11.7) 04/10/18 08:36 Neut % (Auto) 43.8 % (50.0-75.0) L 04/10/18 08:36 Lymph % (Auto) 38.8 % (20.0-40.0) 04/10/18 08:36 [place] % (Auto) 12.2 % (0.0-10.0) H 04/10/18 08:36 Eos % (Auto) 4.8 % (0.0-4.0) H 04/10/18 08:36 Baso % (Auto) 0.4 % (0.0-2.0) 04/10/18 08:36 Neut # (Auto) 1.1 K/uL (1.8-7.0) L 04/10/18 08:36 Lymph # (Auto) 1.0 K/uL (1.0-4.3) 04/10/18 08:36 [place] # (Auto) 0.3 K/uL (0.0-0.8) 04/10/18 08:36 Eos # (Auto) 0.1 K/uL (0.0-0.7) 04/10/18 08:36 Baso # (Auto) 0.0 K/uL (0.0-0.2) 04/10/18 08:36 PT 13.6 Seconds (9.8-13.1) H 04/08/18 04:41 INR 1.2 04/08/18 04:41 APTT 35.6 Seconds (25.6-37.1) 04/08/18 04:41 Sodium 138 mmol/l (132-148) 04/10/18 08:36 Potassium 3.9 MMOL/L (3.6-5.0) 04/10/18 08:36 Chloride 98 mmol/L (98-107) 04/10/18 08:36 Carbon Dioxide 31 mmol/L (22-30) H 04/10/18 08:36 Anion Gap 13 (10-20) 04/10/18 08:36 BUN 10 mg/dl (9-20) 04/10/18 08:36 Creatinine 1.2 mg/dl (0.8-1.5) 04/10/18 08:36 Est GFR ( Amer) > 60 04/10/18 08:36 Est GFR (Non-Af Amer) > 60 04/10/18 08:36 Random Glucose 93 mg/dL (75-110) 04/10/18 08:36 Lactic Acid 1.0 mmol/L (0.7-2.1) 04/10/18 08:36 Calcium 9.4 mg/dL (8.4-10.2) 04/10/18 08:36 Total Bilirubin 0.4 mg/dl (0.2-1.3) 04/07/18 19:52 AST 38 U/L (17-59) 04/07/18 19:52 ALT 22 U/L (21-72) 04/07/18 19:52 Alkaline Phosphatase 77 U/L (38-126) 04/07/18 19:52 Total Protein 7.4 G/DL (6.3-8.2) 04/07/18 19:52 Albumin 4.2 g/dL (3.5-5.0) 04/07/18 19:52 Globulin 3.2 gm/dL (2.2-3.9) 04/07/18 19:52 Albumin/Globulin Ratio 1.3 (1.0-2.1) 04/07/18 19:52 Lipase 275 U/L (23-300) 04/07/18 19:52 Urine Color Straw (YELLOW) 04/08/18 00:07 Urine Clarity Slighty-cloudy (Clear) 04/08/18 00:07 Urine pH 7.0 (5.0-8.0) 04/08/18 00:07 Ur Specific [place] 1.010 (1.003-1.030) 04/08/18 00:07 Urine Protein Negative mg/dL (NEGATIVE) 04/08/18 00:07 Urine Glucose (UA) Neg mg/dL (NEGATIVE) 04/08/18 00:07 Urine Ketones Negative mg/dL (NEGATIVE) 04/08/18 00:07 Urine Blood Negative (NEGATIVE) 04/08/18 00:07 Urine Nitrate Negative (NEGATIVE) 04/08/18 00:07 Urine Bilirubin Negative (NEGATIVE) 04/08/18 00:07 Urine Urobilinogen 0.2-1.0 mg/dL (0.2-1.0) 04/08/18 00:07 Ur Leukocyte Esterase Neg Rolando/uL (Negative) 04/08/18 00:07 Urine Microscopic WBC 1 /hpf (0-5) 04/08/18 00:07 Stool Occult Blood Positive (NEGATIVE) H 04/07/18 21:40 Urine Opiates Screen Positive (NEGATIVE) H 04/08/18 00:07 Urine Methadone Screen Negative (NEGATIVE) 04/08/18 00:07 Ur Barbiturates Screen Negative (NEGATIVE) 04/08/18 00:07 Ur Phencyclidine Scrn Negative (NEGATIVE) 04/08/18 00:07 Ur Amphetamines Screen Negative (NEGATIVE) 04/08/18 00:07 U Benzodiazepines Scrn Negative (NEGATIVE) 04/08/18 00:07 U Oth Cocaine Metabols Negative (NEGATIVE) 04/08/18 00:07 U Cannabinoids Screen Negative (NEGATIVE) 04/08/18 00:07 Blood Type O POSITIVE 04/08/18 04:41 Blood Type Confirm O POSITIVE 04/08/18 10:40 Antibody Screen Negative 04/08/18 04:41 BBK History Checked No verified bt 04/08/18 04:41 - Hospital Course Hospital Course: 38 y/o male with 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 Surgery and GI was consulted Underwent colonoscopy with removal of foreign body. Post procedure continued having pain relieved with narcotics. KUB showed no perforation . Diet was started and advanced to soft diet and tolerating well Was started on Cipro and Flagyl prophylactically At present doing well, pain has improved significantly , tolerating diet Cleared by surgery for discharge will d/c patient home with follow up with PMD Tylenol PRN for pain No more antibiotics needed Can resume xarelto Dx Foreign body of rectum abdominal pain Discharge Exam - Head Exam Head Exam: ATRAUMATIC, NORMAL INSPECTION, NORMOCEPHALIC - Eye Exam Eye Exam: EOMI, Normal appearance, PERRL Pupil Exam: NORMAL ACCOMODATION - ENT Exam ENT Exam: Mucous Membranes Moist, Normal Exam - Neck Exam Neck exam: Full Rom, Normal Inspection - Respiratory Exam Respiratory Exam: Clear to PA & Lateral, NORMAL BREATHING PATTERN. absent: Rales, Rhonchi, Wheezes - Cardiovascular Exam Cardiovascular Exam: REGULAR RHYTHM, RRR, +S1, +S2. absent: JVD - GI/Abdominal Exam GI & Abdominal Exam: Normal Bowel Sounds, Soft. absent: Distended, Guarding, Rebound, Tenderness Additional comments: tympanic - Rectal Exam Rectal Exam: Deferred - Extremities Exam Extremities exam: normal capillary refill, normal inspection, pedal pulses present - Back Exam Back exam: NORMAL INSPECTION - Neurological Exam Neurological exam: Alert, CN II-XII Intact - Psychiatric Exam Psychiatric exam: Normal Affect - Skin Skin Exam: Dry, Intact, Normal Color, Warm Discharge Plan - Follow Up Plan Condition: STABLE Disposition: HOME/ ROUTINE Patient education suggested?: Yes Instructions: Rectal Foreign Body, Rectal Foreign Body Removal (DC) Additional Instructions: follow up with primary MD Dr. Renetta Wilkins 1 week Referrals: Aurelio Friedman MD [Staff Provider] - Zane Rodriguez MD [Staff Provider] -
== END 2018-04-10 13:15 | disposition home or self-care (01) ==
LOC: H.ER 17:44 → H.ERHOLD 04-08 01:13 → H.MEDSURG1 04-08 05:38
PROVIDERS: ADMIT Internal Medicine; ATTEND Internal Medicine
DX: T18.5XXA Foreign body in anus and rectum, initial encounter (principal); D68.51 Activated protein C resistance; D68.2 Hereditary deficiency of other clotting factors; K21.9 Gastro-esophageal reflux disease without esophagitis; F17.210 Nicotine dependence, cigarettes, uncomplicated; Z86.711 Personal history of pulmonary embolism; Z86.718 Personal history of other venous thrombosis and embolism; Z79.01 Long term (current) use of anticoagulants
CPT/HCPCS: 36415; 45379; 71045; 71048; 74019; 74177; 80048; 80053; 80324; 80345; 80346; 80349; 80353; 80358; 80361; 81003; 83605; 83690; 83992; 85025; 85027; 85610; 85730; 86850; 86900; 88304; 93005; 96374; 99285; C9113; G0328; G0378; J0330; J0744; J1170; J1885; J2001; J2250; J2270; J2405; J2704; J3010; J7120; Q9966; Q9967